=== PATIENT | female | born 1995 | race Caucasian/White ===

== ENCOUNTER 2020-07-31 02:00 | Outpatient (CLI) | payer OTHER, MEDICAID, SELFPAY ==
[2020-07-31 20:08] LABS: SARS-CoV-2 RNA PCR Negative
== END 2020-07-31 02:01 | disposition home or self-care (01) ==
LOC: ANHCOVIDDT 02:00
PROVIDERS: PCP Family Medicine; Visit Provider Obstetrics & Gynecology
DX: Z01.818 Encounter for other preprocedural examination (principal); Z20.828 Contact with and (suspected) exposure to other viral communicable diseases
CPT/HCPCS: C9803; U0003

== ENCOUNTER 2020-08-04 00:34 | Day surgery (SDC) | payer OTHER, MEDICAID, SELFPAY ==
[2020-07-28 14:21] VITALS: BMI 23.8
--- NOTE | 2020-08-03 10:18 | WPDANESEPPF ---
Anes - Initial Pre Proc Eval Procedure: Operation Date: 08/04/20 16:00 Proposed Procedures p Laparoscopic Bilateral Tubal Sterilization With Fulguration - Lory Grigsby MD Date/Time: 08/03/20 10:18 Surgeon: Lory Grigsby MD Pre Op Diagnosis: Desires Sterilization Patient Data Age: 25 Gender: F Height: 1.65 m Weight: 65 kg Allergies Allergy/AdvReac Type Severity Reaction Status Date / Time No Known Allergies Allergy Verified 08/04/20 15:07 Home Medications Medication Instructions Recorded Confirmed Type quetiapine 50 mg tablet 50 mg PO . q.h.s. #30 tablet 03/02/20 07/28/20 Rx escitalopram oxalate 20 mg tablet 20 mg PO DAILY #30 tablet 06/17/20 07/28/20 Rx Patient hx anesthesia problems: none Family hx anesthesia problems: none PMFSH Past Medical History Medical History (Updated 03/02/20 @ 09:44 by Shayne Miller MD) ADHD (attention deficit hyperactivity disorder), inattentive type Cough COVID-19 virus detected Exposure to COVID-19 virus Fever Family History Family History (Updated 11/20/18 @ 10:07 by DOCTOR UNKNOWN) Mother Family history of thyroid disease Patient's mother is in good health Grandparent Family history of malignant neoplasm of breast Social History Social History Smoking status: Never smoker Alcohol intake: current Living arrangements: with family Anes - Eval Final PreProcedure Day of Procedure 08/03/20 10:18 Patient weight: normal Heart: regular rate and rhythm Lungs: clear to auscultation and normal air movement Airway: Mallampati scale class II Neurological: alert and oriented Last oral intake: >/= 8 hours ASA classification: II Emergent: no Anesthetic plan: proceed Anesthesia type and monitoring: general ETT and standard monitoring Informed Consent: The patient's anesthetic plan and its attendant risks and benefits were discussed with the patient/family/POA. Questions were solicited and answers provided to the satisfaction of the patient/family/POA.
[2020-08-04] VITALS (7 sets, daily range): BP systolic 102–120; BP diastolic 60–82; PULSE 66–91; RESP 12–20; TEMP 36.5–36.6; O2SAT 100
[2020-08-04] MEDS: LACTATED RINGERS 1,000 ML 30 ML IV CONT ×2 (14:50→16:40)
[2020-08-04] MEDS: ACETAMINOPHEN 500 MG TABLET 1000 MG PO (15:06)
[2020-08-04] MEDS: KETOROLAC 15 MG/ML VIAL (*BKC) IV PUSH (15:08)
--- NOTE | 2020-08-04 15:56 | WPDHPUPDATE1 ---
History and Physical Update Update Date/Time: 08/04/20 15:56 History and Physical has been reviewed, including an updated exam of the patient. There are NO changes in the patient's condition. Risks, benefits, and alternatives have been discussed and questions answered. Patient agrees to proceed with procedure.
--- NOTE | 2020-08-04 16:38 | PM.PROC ---
Procedure Note - Detailed Date of procedure: 08/04/20 Pre-op diagnosis: Desires Sterilization Post-op diagnosis: same Procedure performed: Laparoscopic bilateral tubal ligation Description of procedure: Patient was taken the operating room. She has prepped draped in the dorsal lithotomy position after induction of general anesthesia. A 5 mm abdominal incision was made in left upper quadrant of the abdomen with scalpel. A 5 mm trocars inserted the intra-abdominal cavity under direct visualization of the scope. Pneumoperitoneum was achieved. A 5 mm periumbilical incision was made using a scalpel on the abdominal scan. A 5 mm trocar was inserted the intra-abdominal cavity under visualization of the scope. The fallopian tube was grasped with the bipolar cautery in the ampullary region. It was completely desiccated in a 1.5 cm area of the fallopian tube. This was performed in identical fashion on the contralateral side. The instruments were withdrawn. The pneumoperitoneum was reduced. The trocars were removed. The skin was closed with subcuticular 4 Monocryl. This incisions were covered with Dermabond. The patient tolerated the procedure well. She was taken to recover room in stable condition. Anesthesia: GETA Surgeon: Lory Grigsby MD Estimated blood loss (mL): 10 Drains: No Packing: No Pathology: none sent Complications: No immediate complications Condition: stable Disposition: PACU Findings: Normal female pelvic anatomy.
[2020-08-04] MEDS: fentaNYL CITRATE INJ (*CRX) 100 MCG/2 ML VIAL 25 MCG IV PUSH ×6 (16:48→17:13)
[2020-08-04] MEDS: oxyCODONE HCL (*CRX) 5 MG TAB IR PO (17:37)
== END 2020-08-04 18:20 | disposition home or self-care (01) ==
PROVIDERS: PCP Family Medicine; Visit Provider Obstetrics & Gynecology
PROC: (CPT 58671; principal; 2020-08-04 16:00)
DX: Z30.2 Encounter for sterilization (principal); F90.0 Attention-deficit hyperactivity disorder, predominantly inattentive type; Z86.16 Personal history of COVID-19
CPT/HCPCS: 58670; A9270; C9803; J0330; J1885; J2250; J2405; J2704; J3010; J7120; U0003

== ENCOUNTER 2021-05-05 07:34 | Outpatient (CLI) | payer BC, OTHER, MEDICAID, SELFPAY ==
--- NOTE | ~2021-05-05 | CT_ITS ---
EXAMINATION: CT chest high resolution wo ia EXAM DATE: 05/05/2021 10:35 INDICATION: R06.00 - Dyspnea, unspecified. Shortness of breath. COVID 19 in January. TECHNIQUE: Spiral CT of the chest without contrast. HRCT. Axial, coronal and sagittal images of the c hest were reviewed. Coronal maximum intensity pixel images of chest reviewed. The dose-length produ ct (DLP) for this examination was 169.18 mGy-cm. The exposure was tailored according to patient size (auto mA exposure control), and iterative reconstruction (ASIR) was used as additional dose reductio n technique. There is no prior study for comparison. FINDINGS: No evidence of interstitial lung disease on the HRCT. The lungs are clear. There are no p leural or pericardial effusions. Tracheobronchial tree is patent. There is no mediastinal, hilar or axillary lymphadenopathy. There is no pneumothorax. Heart normal in size. No evidence of cor onary arterial calcification. Upper abdomen is unremarkable. There is mild upper thoracic dextrosc oliosis, moderate lower thoracic levoscoliosis. IMPRESSION: 1. Clear lungs. 2. Moderate lower thoracic levoscoliosis. Reviewed, dictated and finalized at location G.
--- NOTE | 2021-05-05 07:46 | ECHO_ITS ---
Patient Info Name: Ada Blakely Age: 25 years : 1995 Gender: Female Ht: 66 in Wt: 160 lbs BSA: 1.85 m2 HR: 83 bpm BP: 116 / 81 mmHg Technical Quality: Good Exam Date: 05/05/2021 7:56 AM Exam Location: [facility] Patient Status: Outpatient Admit Date: 05/05/2021 Staff Ordering Physician: Shayne Miller MD Product Blending Supervisor: Rosibel Salter RDCS Attending Provider: Shayne Miller MD Referring Physician: Angela WANG; Exam Type: CA echo doppler color flow Study Info Indications R06.00 - Dyspnea, unspecified Complete two-dimensional, color flow and Doppler transthoracic echocardiogram is performed. Summary 1. Complete two-dimensional, color flow and Doppler transthoracic echocardiogram is performed. 2. Left ventricular chamber dimension is normal. 3. Left ventricular systolic function is normal, estimated at 60-65%. 4. The left ventricular diastolic function is normal. 5. E/e' 7 is not elevated. 6. Global longitudinal strain is normal at -17.7%. 7. No pulmonary hypertension, estimated pulmonary arterial systolic pressure is 23 mmHg. Left Ventricle E/e' 7 is not elevated. Global longitudinal strain is normal at -17.7%. Left ventricular chamber dimension is normal. Left ventricular systolic function is normal, estimated at 60-65%. The left ventricular diastolic function is normal. Right Ventricle Right ventricular chamber dimension is normal. Right ventricular systolic function is normal. Left Atria Left atrial chamber dimension is normal. Right Atria Right atrial chamber dimension is normal. Aortic Valve The aortic valve is trileaflet. There is no aortic valve stenosis. There is no aortic valve regurgitation. Pulmonic Valve There is no pulmonic regurgitation. Mitral Valve There is no mitral valve stenosis. There is no mitral valve regurgitation. Tricuspid Valve There is no tricuspid valve regurgitation. No pulmonary hypertension, estimated pulmonary arterial systolic pressure is 23 mmHg. Pericardium/Pleural There is no pericardial effusion. Inferior Vena Cava Normal inferior vena cava with >50% collapse upon inspiration consistent with normal right atrial pressure, 5 mmHg. Aorta The aortic root size at the sinus of Valsalva is normal. Left Ventricular Outflow Tract Name Value Normal LVOT 2D LVOT Diameter 2.0 cm LVOT Doppler LVOT Peak Gradient 3 mmHg LVOT Mean Gradient 2 mmHg LVOT VTI 18 cm LVOT VTI/AV VTI Ratio 0.9 LVOT Stroke Volume 57 ml LVOT CO 4.5 l/min LVOT CI 2.4 l/min/m2 Pulmonic Valve Name Value Normal RVOT Doppler RVOT Peak Gradient 3 mmHg
--- NOTE | 2021-05-09 13:15 | WPDPFTINT ---
PFT Procedure Performed PFT Procedure Performed Spirometry with Pre/Post Bronchodilator Plethysmography (Lung Vol) Diffusing Cap (DLCO) Flow Vol Loop PFT Interpretation Lung volumes were measured with the body plethysmography method. Lung volumes are unremarkable. Spirometry showed normal expiratory flow rates and a normal FEV1 to FVC ratio of 82%. Following administration of a bronchodilator, there was no significant change in the expiratory flow rates. Lung diffusion capacity is within the normal range. The flow volume loop is unremarkable. Impression: Spirometry, lung volumes, and lung diffusion capacity all within the normal range.
== END 2021-05-05 07:35 | disposition home or self-care (01) ==
PROVIDERS: PCP Family Medicine; Visit Provider Family Medicine
DX: R06.00 Dyspnea, unspecified (principal); B94.8 Sequelae of other specified infectious and parasitic diseases
CPT/HCPCS: 71250; 93306; 94060; 94726; 94729

== ENCOUNTER → 2023-07-09 13:44 | Outpatient (CLI) | payer MEDICAID, SELFPAY ==
--- NOTE | ~2023-07-09 | XR_ITS ---
Right Knee Technique: AP, lateral, and sunrise views were obtained. Clinical History: Pain Findings: No fracture or dislocation is seen. Osseous alignment is anatomic. Joint spaces are preserv ed without degenerative or erosive change. Soft tissues are unremarkable. No joint effusion is seen. Impression: Unremarkable right knee radiographs. Reviewed, dictated and finalized at location . RDOUS MATERIALS DRIVER Impression: Unremarkable right knee radiographs.
== END ==
PROVIDERS: PCP Family Medicine; Visit Provider Nurse Practitioner Family
DX: M25.561 Pain in right knee (principal)
CPT/HCPCS: 73564

== ENCOUNTER 2024-09-24 07:48 | Outpatient (CLI) | payer OTHER, MEDICAID, SELFPAY ==
--- OUTSIDE RECORDS SUMMARY | 2024-09-24 07:52 | XMS_ITS | Clinical Summary ---
Author Organization [facility] Address [address] [place] [address] Phone Care Team Providers Care Racetrack Steward Name Role Phone Unavailable Primary Care Provider Unavailabl e Allergies Active Allergy Reactions Criticality Noted Date Comments Shaun Swelling Low 11/29/2018 Medications vit-iron fumarate-fa (LUIS ) 28 mg iron- 800 mcg Tablet Take 1 Tablet by mouth daily. Active Active Problems Problem Noted Date Diagnosed Date Full-term premature rupture of membranes 019 contractions 12/24/2018 care, subsequent in [facility] 12/20/2018 Fall 12/18/2018 Family History Medical History Relation Name Comments Heart Disease Maternal Grandfather Breast Cancer Maternal Grandmother Breast Cancer Paternal Grandmother Relation Name Status Comments Maternal Grandfather Maternal Grandmother Paternal Grandmother Social History Tobacco Use Types Packs/Day Years Used Date Smoking Tobacco: Never Smokeless Tobacco: Never Alcohol Use Standard Drinks/Week Comments Never 0 (1 standard drink = 0.6 oz pur e alcohol) Comments No Sex and Gender Information Value Date Recorded Sex Assigned at Not on file Legal Sex Female 6:06 PM CDT Gender Identity Not on file Sexual Orientation Not on file Last Filed Vital Signs Vital Sign Reading Time Taken Comments Blood Pressure 126/59 02/27/2019 11:23 AM CDT Pulse 81 01/15/2019 8:00 AM CDT Temperature 37.1 C (98.7 F) 01/15/2019 8:00 AM CDT Respiratory Rate 18 01/15/2019 8:00 AM CDT Oxygen Saturation - - Inhaled Oxygen Concentration - - Weight 66.7 kg (147 lb) 02/27/2019 11:23 AM CDT Height 165.1 cm (5' 5 ) 12/24/2018 8:45 AM CDT Body Mass Index 24.46 12/24/2018 8:45 AM CDT Plan of Treatment Health Maintenance Due Date Last Done Comments DTAP/TDAP/TD VACCINES (1 - Tdap) 2015 HEPATITIS B VACCINES (1 of 3 - 19+ 3-dose series) 2015 CERVICAL CANCER SCREENING 2017 INFLUENZA VACCINE (#1) 2024 HPV VACCINES Aged Out No longer eligi ble based on patient's age to complete this topic PNEUMOCOCCAL VACCINE 0-64 YEARS Aged Out No longer eligible based on patient's age to complete this topic Insurance [facility] [id number] BLUE ACCESS CHOICE Advance Directives For more information, please contact: [phone] * Full Code (Latest Code Status on File) Date Activated Date Inactivated Comments 01/14/2019 9:55 PM 01/15/2019 1:29 PM * Full Code Date Activated Date Inactivated Comments 01/14/2019 9:18 PM 01/14/2019 9:55 PM * Full Code Date Activated Date Inactivated Comments 01/14/2019 7:24 PM 01/14/2019 9:18 PM * Full Code Date Activated Date Inactivated Comments 12/18/2018 6:48 PM 12/18/2018 10:07 PM
--- OUTSIDE RECORDS SUMMARY | 2024-09-24 07:52 | XMS_ITS | Referral Summary ---
Author Organization [facility] Address [address] [place] [address] Care Team Providers Care Online Services Manager Name Role Phone Shayne Miller MD Primary Care Provider [phone] Kelley Orta PICKLING MACHINE OPERATOR-FACER OPERATOR Unavailable Source Comments [facility],non-owned Affiliates and Associated Physician Practices is amultiple site organization consisting of ambulatory clinics and hospital sitesin [place], [place], [place] and [place]. This disclosure is being madepursuant to the Care Everywhere program and may not contain all information available regarding this patient. Last updated 18.[facility] Allergies No known active allergies Medications * Be aware that medications may not be up to date on this document. Alwaysverify current medications with the patient. Medication Sig Dispensed Refills Start Date End Date Status multivitamins (ONE A DAY) tablet Take 1 Tab by mouth daily. Active Loratadine (CLARITIN PO) Take by mouth. Active Norethin-Eth Estrad-Fe Biphas (LO LOESTRIN FE PO) Take by mouth. Active Active Problems Problem Noted Date Diagnosed Date Scoliosis (and kyphoscoliosis), idiopathic 04/11 Overview (04/29/2021): IMO 2020 Social History Tobacco Use Types Packs/Day Years Used Date Smoking Tobacco: Never Assessed Sex and Gender Information Value Date Recorded Sex Assigned at Not on file Gender Identity Not on file Sexual Orientation Not on file Last Filed Vital Signs Vital Sign Reading Time Taken Comments Blood Pressure - - Pulse - - Temperature - - Respiratory Rate - - Oxygen Saturation - - Inhaled Oxygen Concentration - - Weight 46 kg (101 lb 6.4 oz) 12/12/2010 1:00 PM CDT Height 159.5 cm (5' 2.8 ) 12/12/2010 1:00 PM CDT Body Mass Index 18.08 12/12/2010 1:00 PM CDT Plan of Treatment Not on file Care Teams Online Services Manager Relationship Specialty Start Date End Date Shayne Miller MD PCP - General Family Medicine 04/10/13 Kelley Orta, PICKLING MACHINE OPERATOR-FACER OPERATOR [facility] [place] [address] PCP - Attributed-[employer] Medicaid [place] 11/28/23
--- OUTSIDE RECORDS SUMMARY | 2024-09-24 07:52 | XMS_ITS | Patient Health Summary ---
Author Organization [facility] Address [address] [place] [address] Care Team Providers Care Hydrostatic Tester Name Role Phone Shayne Miller MD Primary Care Provider [phone] Kelley Orta SUPERVISOR ALUMINUM FABRICATION-PNP Unavailable [phone] Note from [facility],non-owned Affiliates and Associated Physician Practices is amultiple site organization consisting of ambulatory clinics and hospital sitesin [place], [place], [place] and [place]. This disclosure is being madepursuant to the Care Everywhere program and may not contain all information available regarding this patient. Last updated 18.[facility] Allergies No known active allergies Medications * Be aware that medications may not be up to date on this document. Alwaysverify current medications with the patient. * multivitamins (ONE A DAY) tablet Take 1 Tab by mouth daily. * Loratadine (CLARITIN PO) Take by mouth. * Norethin-Eth Estrad-Fe Biphas (LO LOESTRIN FE PO) Take by mouth. Active Problems Problem Noted Date Diagnosed Date Scoliosis (and kyphoscoliosis), idiopathic 04/11 Social History Tobacco Use Types Packs/Day Years [...] Mass Index 18.08 12/12/2010 1:00 PM CDT Procedures * XR SCOLIOSIS 1VW(Performed 04/28/2013) Performed for Scoliosis (and kyphoscoliosis), idiopathic * XR SCOLIOSIS 1VW(Performed 06/05/2011) Performed for Scoliosis (and kyphoscoliosis), idiopathic * XR SCOLIOSIS 1VW(Performed 12/12/2010) Performed for Scoliosis (and kyphoscoliosis), idiopathic * MRI SPINE COMPLETE WO CONT PEDS(Performed 04/14/2010) Performed for Scoliosis (and Kyphoscoliosis), Idiopathic * XR SCOLIOSIS 1VW(Performed 04/11/2010) Performed for Scoliosis (and Kyphoscoliosis), Idiopathic * XR SCOLIOSIS 1VW(Performed 10/18/2009) Performed for Idiopathic Scoliosis Results * XR SCOLIOSIS ERECT (04/28/2013 2:23 PM CDT) Only the most recent of5 resultswithin the time period is included. Anatomical Region Laterality Modality Spine Radiographic Astrid ging 04/28/2013 3:11 PM CDT Impressions 04/28/2013 4:00 PM CDT 1. Slightly decreased left T8-T12 scoliosis. 2. Unchanged right T12-L4 scoliosis. 3. Unchanged minimal pelvic tilt with right higher than left. Dictated by Jose Juan Petty M.D. Dictated by Jose Juan Butt on 04/28/2013 3:59 PM I, Adan Oconnor, have personally reviewed the images and I agree with this report. Narrative 04/28/2013 4:00 PM CDT SCOLIOSIS SERIES; UPRIGHT PA AND LATERAL VIEWS OF THE SPINE DATE: 04/28/2013 HISTORY: Scoliosis FINDINGS: Comparison is made with scoliosis series dated 06/05/21. 12 rib-bearing thoracic vertebrae and 5 nonrib-bearing lumbar vertebrae are seen. There is lumbarization of S1. Left T8-T12 scoliosis is slightly decreased measuring 33?. This previously measured 33?. Right T12-L4 scoliosis is not significantly changed, measuring approximately 26?. No congenital vertebral anomaly or paraspinal mass is visible. There is unchanged minimal pelvic tilt with depression of the left pelvis compared to the right. Vertebral alignment is normal on the lateral view. Procedure Note Adan Oconnor MD - 04/28/2013 SCOLIOSIS SERIES; UPRIGHT PA AND LATERAL VIEWS OF THE SPINE DATE: 04/28/2013 HISTORY: Scoliosis FINDINGS: Comparison is made with scoliosis series dated 06/05/21. 12 rib-bearing thoracic vertebrae and 5 nonrib-bearing lumbar vertebrae are seen. There is lumbarization of S1. Left T8-T12 scoliosis is slightly decreased measuring 33?. This previously measured 33?. Right T12-L4 scoliosis is not significantly changed, measuring approximately 26?. No congenital vertebral anomaly or paraspinal mass is visible. There is unchanged minimal pelvic tilt with depression of the left pelvis compared to the right. Vertebral alignment is normal on the lateral view. IMPRESSION 1. Slightly decreased left T8-T12 scoliosis. 2. Unchanged right T12-L4 scoliosis. 3. Unchanged minimal pelvic tilt with right higher than left. Dictated by Jose Juan Petty M.D. Dictated by Jose Juan Butt on 04/28/2013 3:59 PM I, Adan Oconnor, have personally reviewed the images and I agree with this report. Hong Solitario MD DIAGNOSTIC IMAGING O RDERABLES * MRI C T L SPINE WO CONTRAST (04/14/2010 5:40 PM CDT) Anatomical Region Laterality Modality Magnetic Resonan ce 04/15/2010 9:50 AM CDT Narrative 04/15/2010 9:50 AM CDT MRI cervical spine MRI thoracic spine MRI lumbar spine Technique: T1: Sagittal, axial T2: Sagittal, axial The cerebellar tonsils extend slightly below the foramen magnum. Left thoracic and right lumbar curves are present. The spinal cord ends at T12. The spinal cord demonstrates normal signal intensity. No intramedullary or extramedullary mass lesions are present. The central canal is normal. Diagnosis: Low lying cerebellar tonsils. Idiopathic scoliosis. Procedure Note Maye Pinedo MD - 04/15/2010 MRI cervical spine MRI thoracic spine MRI lumbar spine Technique: T1: Sagittal, axial T2: Sagittal, axial The cerebellar tonsils extend slightly below the foramen magnum. Left thoracic and right lumbar curves are present. The spinal cord ends at T12. The spinal cord demonstrates normal signal intensity. No intramedullary or extramedullary mass lesions are present. The central canal is normal. Diagnosis: Low lying cerebellar tonsils. Idiopathic scoliosis. Diane Blanco MD MR ORDERABLES Care Teams Hydrostatic Tester Relationship Specialty Start Date End Date Shayne Miller MD PCP - General Family Medicine 04/10/13 Kelley Orta, SUPERVISOR ALUMINUM FABRICATION-PNP [address] [place] [address] PCP - Attributed-[employer] Medicaid [place] 11/28/23
--- OUTSIDE RECORDS SUMMARY | 2024-09-24 07:52 | XMS_ITS | Clinical Summary ---
Author Organization [facility] Address [address] [place] [address] Care Team Providers Care Marketing Sales Supervisor Name Role Phone Shayne Miller MD Primary Care Provider [phone] Kelley Orta UNIT CLERK-SENIOR IOS DEVELOPER Unavailable [phone] Source Comments [facility],non-owned Affiliates and Associated Physician Practices is amultiple site organization consisting of ambulatory clinics and hospital sitesin [place], [place], [place] and [place]. This disclosure is being madepursuant to the Care Everywhere program and may not contain all information available regarding this patient. Last updated 18.[facility] Allergies No known active allergies Medications * [...] 12/12/2010 1:00 PM CDT Plan of Treatment Health Maintenance Due Date Last Done Comments PAP SMEAR 1995 HIV SCREENING 2011 HEPATITIS C SCREENING 07/10/2014 DTAP/TDAP/TD VACCINES (1 - Tdap) 2015 HEPATITIS B VACCINE (1 of 3 - 19+ 3-dose series) 2015 COVID-19 VACCINE (1 - 2023-2 5 season) 2024 INFLUENZA VACCINE (#1) 2024 DEPRESSION SCREENING 07/30/2024 ZOSTER VACCINE (1 of 2) 2046 HIB VACCINE Aged Out No longer eligi ble based on patient's age to complete this topic HPV VACCINE Aged Out No longer eligi ble based on patient's age to complete this topic MENINGOCOCCAL (Group B) VACCINE Aged Out No longer eligible based on patient's age to complete this topic MENINGOCOCCAL VACCINE Aged Out No melanie jose eligible based on patient's age to complete this topic PNEUMOCOCCAL VACCINE Aged Out No long er eligible based on patient's age to complete this topic Care Teams Marketing Sales Supervisor Relationship Specialty Start Date End Date Shayne Miller MD PCP - General Family Medicine 04/10/13 Kelley Orta, UNIT CLERK-SENIOR IOS DEVELOPER [address] [place] [address] PCP - Attributed-[employer] Medicaid [place] 11/28/23
--- NOTE | 2024-10-14 18:53 | WPDHOMESLEEP ---
Sleep Study - Home Unattended Date of Study: 09/24/24 Ordering Provider: Gayatri Boudreaux NP Interpreting Provider: Vanessa Huffman, DO Home Sleep Study Type: Watch PAT Height: 1.68 m Weight: 69.853 kg Body Mass Index: 24.8 Neck Circumference (inches): 13 [place]: 16 Reason for Sleep Study Daytime hypersomnia Sleep History The patient is a 29-year-old female that had a sleep study ordered by primary care for evaluation excessive daytime sleepiness. The patient admits to having difficulty maintaining sleep. She denies snoring loudly. She denies interruptions in breathing while asleep. She denies choking or gasping at night. She denies having trouble breathing on her back. She denies morning headaches. She denies having a dry or sore mouth /throat in the morning. She denies nocturnal heartburn. She urinates twice throughout the night. She does have difficulty returning to sleep if she wakes up throughout the night. She denies any hypnotic or sedative use. She denies feeling anxious about sleep. She does feel tired or sleepy during the day. She does feel tired in the morning. She does have the urge to fall asleep during the day. He does feel drowsy while driving. She denies sleep paralysis and cataplexy. She does have hallucinations or dreamlike images. She does dreams during daytime naps. She does clench or grind her teeth at night. She denies kicking or jerking her legs excessively. She does have a restless feeling in her legs but it does not cause an urge to move her legs. The restless feeling in her legs does not get worse with rest and it does not get better with activities. She goes to bed at 11:00 p.m. on work days. It takes her 1 hour to fall asleep on work days and 30 minutes on her days off. She gets 8 hours of sleep on work days and 9 hours on her days off. Her sleep is somewhat restorative on her days off. She denies taking any planned naps. She denies dream enactment behavior. She denies sleep walking. She consumes 1-2 cups of caffeinated beverage per day. She consumes or 3 alcoholic beverages 1-2 nights per week. She denies tobacco use. She denies exercising on a regular basis. COUNT INCLUDES THE [facility] Past Medical History Medical History Hypersomnia Chronic depression BMI 25.0-25.9,adult Fatigue Right knee pain BMI 26.0-26.9,adult Migraine without aura and without status migrainosus, not intractable (~06/01/22) COVID-19 (02/05/22) 2nd episode starting 02/05/2022 with positive test 02/07/2022. Rash Acute bronchitis Encounter for wellness examination Screening for tuberculosis TB blood test on 06/16/2022 was negative. Persistent shortness of breath after COVID-19 (~02/25/21) Echocardiogram 05/05/2021 completely normal. pulmonary function study on 05/05/2021 was completely normal. Acute non-recurrent maxillary sinusitis Insomnia Pharyngitis Vaginal delivery x2 Depression Anxiety ADHD (attention deficit hyperactivity disorder), inattentive type Moderate episode of recurrent major depressive disorder Surgical History Surgical History History of tonsillectomy History of bilateral tubal ligation 08/04/20 Family History Family History Mother Family history of thyroid disease Patient's mother is in good health Grandparent Family history of malignant neoplasm of breast Social History Social History Smoking status: Never smoker Alcohol intake: current Drinks per week: 2 Substance use: current Substance use type: marijuana Other substance usage details: occassionally Current Housing: Decline to Answer Concerned About Future Housing: Decline to Answer Difficulty Paying Gas/Electric Bills: Decline to Answer Difficulty Paying for Meds: Decline to Answer Currently Unemployed: Decline to Answer Education: Decline to Answer Difficulty w/ Childcare or Family Care: Decline to Answer Living arrangements: with family Medications Home Medications ?Medication ?Instructions ?Recorded ?Confirmed ?Type cetirizine 10 mg tablet (Zyrtec) 10 mg PO DAILY #7 tabs 12/22/21 08/27/24 Rx bupropion HCl 150 mg 24 hr tablet, 150 mg PO QAM #30 tabs 08/27/24 08/27/24 Rx extended release (Wellbutrin XL) zolmitriptan 5 mg tablet (Zomig) See Rx Instructions PO .COMPLEX 08/27/24 08/27/24 Rx PRN migraine headache #12 tabs dextroamphetamine-amphetamine 10 10 mg PO TID #60 tabs 09/30/24 Rx mg tablet (Adderall) Sleep Procedure The sleep study was completed using [employer] a technically adequate device with seven channels: peripheral arterial tone, actigraphy, body position, snore, respiratory movement, pulse oximetry, sleep staging, and heart rate. Prior to using the device, the patient received verbal and written instructions for its application and was provided with the help desk phone number for additional telephonic instruction with 24-hour availability of qualified personnel to answer questions. The study was scored using CMS guidelines. Sleep Architecture The total recording time is 8 hrs, 23 min. The total sleep time is 6 hrs, 3 min. Sleep latency is 57 minutes. REM latency is 50 minutes. The patient had 16 episodes of waking. Sleep architecture shows 9.1% deep sleep, 80.2% light sleep, and (as % Total Sleep Time) showed NREM (Light 80.2%; Deep 9.1%), and a 10.7% stage REM. The patient spent 54.7% of total sleep time in the supine position. Sleep efficiency was 72.17. Respiratory Analysis The overall AHI (pAHI 4%:) is 0.5. The overall AHI (pAHI 3%:) is 1.0. The central AHI is 0.4. The AHI was 0.9 in NREM and 1.6 in REM sleep. The AHI was 1.5 in Supine and 0.4 in Non-supine sleep. Percent of Blayne Murphy respirations is 0.0. Oximetry Data The oxygen desaturation index (RICKI 4%:) is 0.7. The mean saturation is 96%, and the lowest saturation is 93%. Time spent with saturation < 88% is 0.0 minutes. Snoring Profile Snoring average intensity is 40 dB. The patient snored above 45 decibels for 6.1 minutes, 1.7% of sleep time. Cardiac Profile The average pulse rate is 74 beats per minutes. The lowest pulse rate is 56 bpm. The highest pulse rate reported is 108 bpm. Atrial fibrillation was not detected. Premature beats occur <0.1 per minute. Assessment and Plan Assessment and Plan (1) Excessive daytime sleepiness: Code(s): G47.19 - Other hypersomnia Status: Acute Assessment and Plan: The patient had an overall AHI of 0.5 with desaturation down to 93%. This is not consistent with sleep-disordered breathing. Due to the patient's excessive daytime sleepiness, further evaluation is warranted. I recommend that the patient have a polysomnogram followed by an MSLT for further evaluation of excessive daytime sleepiness. The patient should NOT take her Adderall on the days of both sleep studies. Data The data obtained during this sleep study is adequate for interpretation. Certification This sleep study has been reviewed by a board certified sleep medicine physician.
[2024-10-15 10:03] VITALS: BMI 24.8
== END 2024-09-25 14:03 | disposition home or self-care (01) ==
LOC: ANHCSM 07:49
PROVIDERS: PCP Family Medicine; Visit Provider Nurse Practitioner Family
DX: G47.19 Other hypersomnia (principal); F39 Unspecified mood [affective] disorder
CPT/HCPCS: 95800